=== PATIENT | female | born 1985 | race Two or more races ===

== ENCOUNTER 2020-05-17 14:08 | Outpatient (CLI) | payer OTHER ==
[2020-05-19] MEDS ORDERED: ZYRTEC10 M3 PO (15:29)
== END 2020-05-17 15:57 | disposition home or self-care (01) ==
LOC: LAB
PROVIDERS: ATTEND Obstetrics & Gynecology Gynecologic Oncology
DX: Z20.828 Contact with and (suspected) exposure to other viral communicable diseases (principal); C53.0 Malignant neoplasm of endocervix; D64.89 Other specified anemias; R97.1 Elevated cancer antigen 125 [CA 125]; N39.0 Urinary tract infection, site not specified; I10 Essential (primary) hypertension; Z01.812 Encounter for preprocedural laboratory examination

== ENCOUNTER → 2020-05-19 08:00 | Outpatient (CLI) | payer OTHER ==
[~2020-05-19] VITALS: Ht 154.9 cm; Wt 56.7 kg
[~2020-05-19 08:00] MED LIST: ZYRTEC10 M3 PO
== END | disposition home or self-care (01) ==
LOC: LAB 08:00 → SURH 05-24 07:00 → EDSTATUS 05-31 10:30 → SURH 05-31 10:30
PROVIDERS: ATTEND Obstetrics & Gynecology Gynecologic Oncology
DX: U07.1 COVID-19 (principal); C53.9 Malignant neoplasm of cervix uteri, unspecified; D64.89 Other specified anemias; N39.0 Urinary tract infection, site not specified; R97.1 Elevated cancer antigen 125 [CA 125]; R79.1 Abnormal coagulation profile; Z01.810 Encounter for preprocedural cardiovascular examination; Z01.812 Encounter for preprocedural laboratory examination; Z01.811 Encounter for preprocedural respiratory examination